=== PATIENT | female | born 1970 | race Caucasian/White ===

== ENCOUNTER → 2017-05-05 | Outpatient (CLI) | payer BC ==
--- NOTE | 2017-05-05 15:25 | US ---
EXAMINATION TYPE: US thyroid st tissue head/neck DATE OF EXAM: 05/05/2017 COMPARISON: US CLINICAL HISTORY: R53.83 Fatigue. Pt states fatigue, weight gain GLAND SIZE: Right Lobe: 5.9 x 2.4 x 2.8 cm Overall Parenchyma: heterogenous Left Lobe: 5.5 x 1.9 x 2.1 cm Overall Parenchyma: heterogeneous Isthmus Thickness: 0.7 cm Bilateral neck scanned, no evidence of lymphadenopathy. Thyroid enlarged and grossly heterogeneous IMPRESSION: Thyroid enlarged and grossly heterogeneous without discrete nodule identified.
== END | disposition home or self-care (01) ==
LOC: RADUSWWP 14:45
PROVIDERS: ATTEND Family Medicine
DX: E04.9 Nontoxic goiter, unspecified (principal); R53.83 Other fatigue
CPT/HCPCS: 76536

== ENCOUNTER → 2017-06-11 | Outpatient (CLI) | payer BC ==
--- NOTE | 2017-06-11 19:52 | CONS ---
CONSULTATION DATE OF SERVICE: 06/11/17 46-year-old lady who has [facility] for snoring, tiredness, and awakenings from sleep, possible obstructive sleep apnea-hypopnea syndrome. HISTORY OF PRESENT ILLNESS/SLEEP-WAKE EVALUATION: Patient's usual sleep schedule on working days from 9:00 to 10:00 p.m. until 5:56 a.m. On the weekend from around 11:00-12:00 midnight until 8:00 a.m. to 9:00 a.m. She sometimes has problem with falling asleep. Has TV set in bedroom. Prefer to sleep on the side position. Sometimes she ends up on her back but she has difficulties to fall asleep on the back position. She wakes up from sleep about 3 times with snoring, grinding teeth, and about 1 time she has nocturia. No history of hypnagogic hallucinations, cataplexy or sleep paralysis. During the day she wakes up tired. Sometimes feels sleepiness. Tye Sleepiness Scale although is 6 she always feels sleepy in the afternoon and she takes naps around 1:00 p.m. to 3:00 p.m. whenever she can if time permits. She drinks up to 3 caffeinated beverages per day. PAST MEDICAL HISTORY: Positive for depression, acid reflux. Enlargement of her thyroid and recently patient was found to have enlargement of her thyroid by results of ultrasound and her thyroid peroxidase antibody increased to 540. PAST SURGICAL HISTORY: Lap band surgery about 2008, after the patient lost about 55 pounds and then she increased her weight up to the present weight which is 60 pounds more. MEDICATIONS: Lexapro, vitamin D. SOCIAL HISTORY: Negative for smoking or using alcohol. REVIEW OF SYSTEMS: Multiple awakenings from sleep, tiredness and sleepiness during the day. The patient taking naps during the day when it is possible. No fevers No double vision. No recent chest pain. No shortness of breath. No abdominal pain. No bleeding episodes. No blood in urine. No seizure episodes FAMILY HISTORY: Hypertension, heart problems, hyperlipidemia, stroke, snoring, insomnia, cancer, acid reflux. PHYSICAL EXAM: GENERAL: During physical exam, 46-year-old lady without distress. VITAL SIGNS: BP 122/82, HR 92, RR 16, height 5 feet 1 inch, weight 185, BMI 34.9, neck 14-1/2 inches in circumference. Temperature 98.3, oxygen saturation on room air 97%. HEENT: PERRLA, EOMI. Evaluation of oropharynx showed moderately low to normal position of the soft palate. Very minimal overbite, maybe 2 mm. NECK: Supple. No JVD. Thyroid is not palpable. LUNGS: clear to percussion and to auscultation. Good air exchange. No wheezing or rhonchi. HEART: S1, S2 regular. No murmurs, gallops or rubs. ABDOMEN: Slightly obese. Soft and nontender. Bowel sounds are present. No organomegaly appreciated. EXTREMITIES: No cyanosis or clubbing. STRAIGHT CUTTER MACHINE: Awake, alert and oriented x3. Cranial nerves II through VII intact. There is no fasciculation or atrophy noted. No focal deficits observed. IMPRESSION: 1. Snoring, multiple awakenings from sleep, tiredness and sometimes sleepiness during the day, possible obstructive sleep apnea-hypopnea syndrome. 2. Obesity, BMI 34.9. 3. Depression. 4. Status post lap band surgery. 5. Recently found thyroid enlarged on evaluation for possible Vikash's thyroiditis. PLAN: 1. Polysomnography for evaluation of patient's breathing during sleep. 2. CPAP/BiPAP titration if sleep study confirms obstructive sleep apnea-hypopnea syndrome. 3. Preferable position during sleep on the side. 4. No driving if patient feels any sleepiness. Patient is aware of civil and criminal liability for unsafe driving. 5. I will see the patient for follow-up visit to explain results of the testing and following plan. Thank you very much for allowing me to participate in the management of your patient. Sincerely, José Miguel Clements MD, PhD, FAASM Diplomat of [employer] [employer], Sleep Medicine Board by [employer] [employer] [employer] Inspector of [facility] [place] MMODL / IJN: [id number] /
== END | disposition home or self-care (01) ==
LOC: SLEEP 16:01
PROVIDERS: ATTEND Internal Medicine
DX: R06.83 Snoring (principal); E66.9 Obesity, unspecified; Z68.34 Body mass index [BMI] 34.0-34.9, adult; F32.9 Major depressive disorder, single episode, unspecified; E04.9 Nontoxic goiter, unspecified; Z98.84 Bariatric surgery status
CPT/HCPCS: 99211

== ENCOUNTER → 2017-08-12 | Outpatient (CLI) | payer BC ==
[2017-08-12 10:55] LABS: Basophils % (A) 1 %; CH 28.3; CHCM 32.2; Eosinophils # (A) 0.1 k/uL (0-0.7); Eosinophils % (A) 2 %; HCT 42.5 % (34.0-46.0); HDW 2.43; HGB 13.4 gm/dL (11.4-16.0); Luc # (Auto) 0.04; Luc % (Auto) 1; Lymphocytes % (A) 20 %; MCH 27.8 pg (25.0-35.0); MCHC 31.4 g/dL (31.0-37.0); MCV 88.4 fL (80.0-100.0); Mean Platelet Volume 6.9; Monocytes # (A) 0.2 k/uL (0-1.0); Monocytes % (A) 4 %; Neutrophils # (A) 3.6 k/uL (1.3-7.7); Neutrophils % (A) 73 %; RBC 4.81 m/uL (3.80-5.40); RDW 13.9 % (11.5-15.5); WBC 4.9 k/uL (3.8-10.6); WBC (Perox) 5.08
== END | disposition home or self-care (01) ==
LOC: LABPAT 10:15
PROVIDERS: ATTEND Obstetrics & Gynecology
DX: Z01.812 Encounter for preprocedural laboratory examination (principal)
CPT/HCPCS: 36415; 85025

== ENCOUNTER 2017-08-31 09:52 | Day surgery (SDC) | payer BC ==
[2017-08-27 13:07] VITALS: BMI 34.0
--- NOTE | 2017-08-27 13:59 | HP ---
HISTORY AND PHYSICAL DATE OF SERVICE: 08/31/2017 HISTORY OF PRESENT ILLNESS: Andie is a 47-year-old 1, para 1-0-0-1, who presented to the office for annual examination with complaints of significant menorrhagia and a shortening interval between cycles of every 21 to 24 days. She is having heavy bleeding with clots and has bled through protection on several occasions. Her has had a vasectomy and she is not interested in hormonal methods of manipulation. She has requested more definitive treatment with diagnostic hysteroscopy and NovaSure endometrial ablation. PAST MEDICAL HISTORY: Significant for occasional issues with depression. 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 Lastly, she also has occasional PMS symptoms. SURGERY: She has had a lap band surgery in January of 2009 with no complications nor any issues with anesthesia. OBSTETRICAL HISTORY: 1, para 1-0-0-1 with 1 term vaginal delivery with some complications as result of the epidural only. Method of contraception is vasectomy. GYNECOLOGIC HISTORY: Unremarkable with no history of any infections to include STDs. FAMILY HISTORY: Noncontributory. SOCIAL HISTORY: The patient is and works for the [employer] at the [employer] [facility] [employer]. She is a nonsmoker and denies any alcohol or any other social concerns. CURRENT MEDICATIONS INCLUDE: 1. Celexa 20 mg daily. 2. Levothyroxine 25 mcg daily. 3. Vitamin B12 daily. 4. Vitamin C daily. 5. Vitamin D daily. ALLERGIES: CILLINS which were a childhood allergy leading to rash and hives. She additionally does have some SEASONAL ALLERGIES. REVIEW OF SYSTEMS: Confined to history of present illness. PHYSICAL EXAMINATION: Vital signs are stable and the patient is afebrile. Her heart has a regular rhythm and rate without murmur. Her lungs are clear to auscultation bilaterally in all wilson. Her abdomen is nondistended, has normoactive bowel sounds, is soft, nontender, and without any palpable masses, hepatosplenomegaly, or hernias. Her extremities without any cyanosis, clubbing, or edema and are nontender to palpation bilaterally. Pelvic examination demonstrates normal external genitalia and BUS with normal vaginal mucosa and cervix. There is no cervical motion tenderness. The uterus is 5 weeks in size, mid plane, mobile, nontender, and normal in shape. Endometrial biopsy demonstrates benign findings only. ASSESSMENT AND PLAN: Menorrhagia: We discussed multiple options for treatment and the patient has requested to proceed with diagnostic hysteroscopy with NovaSure endometrial ablation. The risks and complications of the procedure have been thoroughly discussed including the risks for bleeding, bleeding requiring transfusion, infection, and injury to local structures, which specifically include uterine perforation, Asherman syndrome, and subsequent hematometra. She has understood all these risks and has agreed to proceed. We are scheduled for the morning of August 31, 2017 for diagnostic hysteroscopy with NovaSure endometrial ablation. MMODL / IJN: [id number] /
[~2017-08-31 09:52] MED LIST: DEXAMETHASONE SOD PHOSPHATE 10 MG/ML 1 ML VIAL IV ONE; LACTATED RINGERS 1,000 ML IV SCH; MIDAZOLAM 2 MG/2 ML VIAL IV PRN; MORPHINE SULFATE 4 MG/ML SYRINGE IV PRN; ONDANSETRON 4 MG/2 ML VIAL IVP ONE; Pre Op ABX Message 1 EACH MISC MISCELLANE ONE; SCOPOLAMINE 1.5MG/72HR PATCH TRANSDERM ONE
[2017-08-31] MEDS ORDERED: LIDOCAINE 1% 20 ML VIAL (10MG/ML) FOR IV START INTRADERMA ONE (11:25)
[2017-08-31] MEDS ORDERED: diphenhydrAMINE 50 MG/ML 1 ML VIAL IVP PRN (12:03)
[2017-08-31] MEDS ORDERED: SIMETHICONE 80 MG CHEWABLE PO PRN (12:03)
[2017-08-31] MEDS ORDERED: ONDANSETRON 4 MG/2 ML VIAL IVP PRN (12:03)
[2017-08-31] MEDS ORDERED: Acetaminophen-Codeine 300-30mg TAB PO PRN ×2 (12:03)
[2017-08-31] MEDS ORDERED: IBUPROFEN 600 MG TAB PO PRN (12:03)
[2017-08-31] MEDS ORDERED: METOCLOPRAMIDE 5 MG/ML 2 ML VIAL IVP PRN (12:03)
[2017-08-31] MEDS ORDERED: KETOROLAC 30 MG/ML 1 ML VIAL IVP PRN (12:03)
[2017-08-31] MEDS ORDERED: SUCCINYLCHOLINE CHLORIDE 100 MG/5 ML SYR IV ONE (12:10)
[2017-08-31] MEDS ORDERED: PROPOFOL 10 MG/ML 20 ML VIAL IV ONE (12:10)
[2017-08-31] MEDS ORDERED: MIDAZOLAM 2 MG/2 ML VIAL ONE (12:10)
[2017-08-31] MEDS ORDERED: fentaNYL (PF) 50 MCG/ML 2 ML AMP ONE (12:10)
[2017-08-31] MEDS ORDERED: LACTATED RINGERS 1,000 ML IV SCH (12:15)
--- NOTE | 2017-08-31 12:41 | P.OP ---
Date of Procedure: 08/31/17 Preoperative Diagnosis: 1. Menorrhagia Postoperative Diagnosis: Same Procedure(s) Performed: #1. Diagnostic hysteroscopy #2. NovaSure endometrial ablation Anesthesia: NONI Surgeon: Maikol De Luna Estimated Blood Loss (ml): 5 IV fluids (ml): 400 Urine output (ml): 30 Pathology: none sent Condition: stable Disposition: PACU Operative Findings: Preoperative pelvic examination demonstrated a roughly 5 week midplane mobile normal shaped uterus with normal adnexa bilaterally. There was evidence of a scar from a possible cervical laceration likely at the of her child which is well-healed. Intraoperatively, the uterus sounded to 9 cm while the cervix measured approximately 3.5 cm. Using the hysteroscope, the bilateral tubal ostia were seen and there was a small to moderate amount of shaggy endometrium but no other pathology noted. The settings for the NovaSure tool where a length of 5.5 cm, a width of 3.9 centimeters, and a total power 118 W. After a total run time of 84 seconds, the base unit read "procedure complete." The postprocedural result appeared to be excellent. The patient is a potential candidate for vaginal hysterectomy should it become necessary in the future. Description of Procedure: The patient was prepped and draped in usual fashion after general endotracheal anesthesia was administered by the anesthesiologist. A weighted speculum was placed and the bladder was drained of approximately 30 mL of clear torey urine. The anterior lip of the cervix was grasped with a single-tooth tenaculum and the uterus and cervix sounded to 9 and 3.5 cm respectively. Serial dilation was carried out to admit the diagnostic hysteroscope. The findings are normal as noted above. After adequate hysteroscopy had been carried out, further dilation was carried out to admit the NovaSure tool which was placed to the fundus of the uterus and seated well. The settings are as noted above. The cavity check was attempted and passed without difficulty and the tool was enabled. The run was started and, after a total run time of 84 seconds, the base unit read "procedure complete." The tool was closed, removed, and discarded. The diagnostic hysteroscope was replaced within the endometrial cavity with the findings appearing to be excellent. All instrumentation was then removed. One of the tenaculum point was noted to have some bleeding and was made hemostatic with pressure. Estimated blood loss for the case was less than 5 mL. There were no complications. All sponge, instrument, and needle counts were correct. The patient tolerated the procedure well and proceeded to the recovery room in stable condition.
[2017-08-31 12:54] VITALS: TEMP 97
[2017-08-31] MEDS ORDERED: IV FLUID CONTINUATION 1,000 ML IV ONE (13:25)
[2017-08-31 13:28] VITALS: RESP 18
[2017-08-31 13:47] VITALS: BP 127/68; PULSE 78
== END 2017-08-31 14:06 | disposition home or self-care (01) ==
LOC: OR 09:52
PROVIDERS: ATTEND Obstetrics & Gynecology
DX: N92.0 Excessive and frequent menstruation with regular cycle (principal); F32.9 Major depressive disorder, single episode, unspecified; E06.3 Autoimmune thyroiditis; K21.9 Gastro-esophageal reflux disease without esophagitis; Z88.0 Allergy status to penicillin; Z79.82 Long term (current) use of aspirin; Z79.899 Other long term (current) drug therapy
CPT/HCPCS: 58563; 81025; J2250; J1100; J2405; J3010; J1885; J0330; J2704

== ENCOUNTER → 2018-11-19 | Outpatient (CLI) | payer BC ==
--- NOTE | 2018-11-22 10:19 | MM ---
Reason for exam: screening (asymptomatic). Last mammogram was performed 1 year and 3 months ago. History: Patient is postmenopausal and had first child at age 34. Family history of breast cancer in maternal grandmother. Took hormonal contraceptives for 15 years. Physical Findings: A clinical breast exam by your physician is recommended on an annual basis and results should be correlated with mammographic findings. MG Screening Mammo w CAD Bilateral CC and MLO view(s) were taken. Prior study comparison: August 14, 2017, bilateral MG screening mammo w CAD. July 29, 2016, bilateral MG screening mammo w CAD. There are scattered fibroglandular densities. There is no discrete abnormality. No significant changes when compared with prior studies. ASSESSMENT: Negative, BI-RAD 1 RECOMMENDATION: Routine screening mammogram of both breasts in 1 year.
== END | disposition home or self-care (01) ==
LOC: RADMAMWWP 15:39
PROVIDERS: ATTEND Obstetrics & Gynecology
DX: Z12.31 Encounter for screening mammogram for malignant neoplasm of breast (principal)
CPT/HCPCS: 77067

== ENCOUNTER → 2020-12-05 | Outpatient (CLI) | payer BC ==
--- NOTE | 2020-12-06 14:36 | MM ---
Reason for exam: screening (asymptomatic). Last mammogram was performed 2 years and 1 month ago. History: Patient is postmenopausal and had first child at age 34. Family history of breast cancer in maternal grandmother. Reductions of both breasts, March 2020. Took hormonal contraceptives for 15 years. Physical Findings: A clinical breast exam by your physician is recommended on an annual basis and results should be correlated with mammographic findings. MG Screening Mammo w CAD Bilateral CC and MLO view(s) were taken. Prior study comparison: November 19, 2018, bilateral MG screening mammo w CAD. August 14, 2017, bilateral MG screening mammo w CAD. There are scattered fibroglandular densities. Focal asymmetry left breast, may be summation. ASSESSMENT: Incomplete: need additional imaging evaluation, BI-RAD 0 RECOMMENDATION: Special view mammogram of the left breast. If lesion persists on supplemental views, image directed ultrasound is recommended. [facility] will attempt to contact patient to return for supplemental views and ultrasound if indicated.
== END | disposition home or self-care (01) ==
LOC: RADMAMWWP 15:50
PROVIDERS: ATTEND Obstetrics & Gynecology
DX: Z12.31 Encounter for screening mammogram for malignant neoplasm of breast (principal); Z78.0 Asymptomatic menopausal state; Z80.3 Family history of malignant neoplasm of breast
CPT/HCPCS: 77067

== ENCOUNTER → 2020-12-18 | Outpatient (CLI) | payer BC ==
--- NOTE | 2020-12-19 11:13 | MM ---
Reason for exam: additional evaluation requested from abnormal screening. Last mammogram was performed less than 1 month ago. History: Patient is postmenopausal and had first child at age 34. Family history of breast cancer in maternal grandmother. Reductions of both breasts, March 2020. Took hormonal contraceptives for 15 years. Physical Findings: Nurse did not find any significant physical abnormalities on exam. MG 3D Work Up W/Cad LT Spot compression CC and LM view(s) were taken of the left breast. Prior study comparison: December 05, 2020, bilateral MG screening mammo w CAD. November 19, 2018, bilateral MG screening mammo w CAD. The breast tissue is heterogeneously dense. This may lower the sensitivity of mammography. No persistent density. May be related to prior reduction. These results were verbally communicated with the patient and result sheet given to the patient on 12/18/20. ASSESSMENT: Probably benign, BI-RAD 3 RECOMMENDATION: Follow-up diagnostic mammogram of the left breast in 6 months.
== END | disposition home or self-care (01) ==
LOC: RADMAMWWP 14:55
PROVIDERS: ATTEND Obstetrics & Gynecology
DX: R92.8 Other abnormal and inconclusive findings on diagnostic imaging of breast (principal); Z78.0 Asymptomatic menopausal state; Z80.3 Family history of malignant neoplasm of breast
CPT/HCPCS: 77061; 77065

== ENCOUNTER → 2022-01-31 | Outpatient (CLI) | payer BC ==
--- NOTE | 2022-02-03 19:30 | MM ---
Reason for Exam: Screening (asymptomatic). Last mammogram was performed 1 year(s) and 2 month(s) ago. Patient History: Menarche at age 13. First Full-Term at age 34. Late child-bearing (after 30). Postmenopausal. Patient used Hormonal Contraceptives for 15 years. 03/2020, Bilateral Reduction. Maternal grandmother had breast cancer. Risk Values: Zakiya 5 year model risk: 1.3%. NCI Lifetime model risk: 12.1%. Film Views: Bilateral CC views were taken. Bilateral MLO views were taken. Left AT views were taken. Prior Study Comparison: 11/19/2018 Bilateral Screening Mammogram, [facility]. 12/05/2020 Bilateral Screening Mammogram, [facility]. 12/18/2020 Left Diagnostic Mammogram, [facility]. Tissue Density: There are scattered fibroglandular densities. Findings: Analyzed By CAD. Anterior definite focal asymmetry left breast laterally. However, the density disperses on additional XCCL view. No significant change from prior exams. Interval reduction mammoplasty compared to the 2019 exam. Overall Assessment: Benign, BI-RAD 2 Management: Screening Mammogram of both breasts in 1 year. A clinical breast exam by your physician is recommended on an annual basis and results should be correlated with mammographic findings. Also, the patient should continue monthly self breast exams. Electronically signed and approved by: Jd Vázquez M.D. Radiologist
== END | disposition home or self-care (01) ==
LOC: RADMAMWWP 14:41
PROVIDERS: ATTEND Family Medicine
DX: Z12.31 Encounter for screening mammogram for malignant neoplasm of breast (principal)
CPT/HCPCS: 77063; 77067

== ENCOUNTER → 2023-10-09 | Outpatient (CLI) | payer BC ==
--- NOTE | 2023-10-12 19:37 | MM ---
Reason for Exam: Screening (asymptomatic). Last mammogram was performed 1 year(s) and 8 month(s) ago. Patient History: Menarche at age 13. First Full-Term at age 34. Late child-bearing (after 30). Postmenopausal. Patient used Hormonal Contraceptives for 15 years. 03/2020, Bilateral Reduction. Maternal grandmother had breast cancer. Risk Values: Zakiya 5 year model risk: 1.5%. NCI Lifetime model risk: 11.8%. Prior Study Comparison: 12/05/2020 Bilateral Screening Mammogram, [facility]. 12/18/2020 Left Diagnostic Mammogram, [facility]. 01/31/2022 Bilateral MG 3D screening mammo w/cad, [facility]. Tissue Density: There are scattered fibroglandular densities. Findings: Analyzed By CAD. There is no suspicious group of microcalcifications or new suspicious mass in either breast. Overall Assessment: Negative, BI-RAD 1 Management: Screening Mammogram of both breasts in 1 year. . Patient should continue monthly self-breast exams. A clinical breast exam by your physician is recommended on an annual basis. This exam should not preclude additional follow-up of suspicious palpable abnormalities. Note on Zakiya scores and lifetime risk: 1. A Zakiya score greater than 3% is considered moderate risk. If this is the case, consider specialist referral to assess eligibility for a risk reducing agent. 2. If overall lifetime risk for the development of breast cancer is 20% or higher, the patient may qualify for future screening with alternating mammogram and breast MRI. Electronically signed and approved by: Jd Vázquez M.D. Radiologist
== END | disposition home or self-care (01) ==
LOC: RADMAMWWP 16:39
PROVIDERS: ATTEND Obstetrics & Gynecology
DX: Z12.31 Encounter for screening mammogram for malignant neoplasm of breast (principal); Z80.3 Family history of malignant neoplasm of breast; Z78.0 Asymptomatic menopausal state
CPT/HCPCS: 77063; 77067